=== PATIENT | male | born 1970 ===

== ENCOUNTER 2022-06-17 03:33 | Emergency (ER) | payer OTHER ==
[2022-06-17] MEDS ORDERED: Dexamethasone 10 MG/ML SDV IM STA (03:44)
[2022-06-17] MEDS ORDERED: Acetaminophen/oxyCODONE 325-5 MG Tab PO ONE (03:44)
== END 2022-06-17 04:00 | disposition home or self-care (01) ==
LOC: MW.ED 03:33
DX: M10.9 Gout, unspecified (principal); Z79.899 Other long term (current) drug therapy
CPT/HCPCS: 96372; 99283; A9270; J1100